=== PATIENT | female | born 1935 ===

== ENCOUNTER 2019-03-25 07:48 | Outpatient (CLI) | payer OTHER | END 2019-03-25 07:50 | disposition home or self-care (01) | LOC: TOM 07:48 | DX: K56.50 Intestinal adhesions [bands], unspecified as to partial versus complete obstruction (principal) ==

== ENCOUNTER 2019-06-10 10:44 | Inpatient (IN) | payer OTHER ==
[~2019-06-10] VITALS: Ht 160 cm; Wt 78.9 kg
[2019-06-20] MEDS ORDERED: LOSARTAN POTASS50 MG PO (08:29)
[2019-06-20] MEDS ORDERED: TOPROL XL100 M1 PO (08:29)
[2019-06-20] MEDS ORDERED: LIPITOR PO (08:30)
[2019-06-27] MEDS ORDERED: ATORVASTATIN CA20 MG PO (08:04)
[2019-06-28] MEDS ORDERED: ULTRACET PO (13:34)
[2019-06-28] MEDS ORDERED: RECTICARE30 GM TOP (13:35)
[2019-06-28] MEDS ORDERED: INTESTINEX680 M1 PO (13:35)
== END 2019-06-28 14:03 | disposition home or self-care (01) | DRG 748 ==
LOC: SURG 06-20 07:15 → SURH 06-27 06:16 → O/R 06-27 06:16 → SURG 06-27 07:15 → SURH 06-27 15:02 → O/R 06-27 15:04 → SURH 06-27 16:37 → O/R 06-27 18:11 → SURH 06-28 09:23
PROVIDERS: ADMIT Surgery
PROC: 3E0T3BZ Introduction of Anesthetic Agent into Peripheral Nerves and Plexi, Percutaneous Approach (ICD-10-PCS; 2019-06-27)
PROC: 0JQC0ZZ Repair Pelvic Region Subcutaneous Tissue and Fascia, Open Approach (ICD-10-PCS; principal; 2019-06-27 08:30)
DX: N81.6 Rectocele (principal); K92.1 Melena; I10 Essential (primary) hypertension; D12.8 Benign neoplasm of rectum; R15.9 Full incontinence of feces